=== PATIENT | male | born 2000 | race Caucasian/White ===

== ENCOUNTER 2022-04-21 22:05 | Emergency (ER) | payer OTHER, SELFPAY ==
--- NOTE | ~2022-04-21 | XR_ITS ---
EXAMINATION: XR CHEST CLINICAL INFORMATION: URI COMPARISON: None TECHNIQUE: Frontal view of the chest was obtained. FINDINGS: The lungs are clear with no focal consolidation. No evidence of pneumothorax, pulmonary edema, or pleural effusions. The cardiomediastinal silhouette is unremarkable. No acute osseous findings. XR/XR chest 1V IMPRESSION: No acute cardiopulmonary findings.
--- NOTE | ~2022-04-21 | CT_ITS ---
EXAMINATION: CT ABDOMEN AND PELVIS WITH CONTRAST CLINICAL INFORMATION: Right lower quadrant abdomen pain COMPARISON: None TECHNIQUE: Multidetector volumetric images were obtained from the superior aspect of the liver through the pubic symphysis following administration 85 mL of Omnipaque 350 intravenous contrast. Sagittal and coronal reformatted images were obtained on the technologist's workstation. Oral contrast: No This CT examination was performed using dose optimization techniques as appropriate, variously including the following: *Automated exposure control *Adjustment of mA and/or kV according to patient size (this includes techniques or standardized protocols for targeted exams where dose is matched to indication/reason for exam; i.e. extremities or head) *Use of iterative reconstruction technique DLP: 509 mGy-cm FINDINGS: LUNG BASES: The visualized lung bases are unremarkable. LIVER, GALLBLADDER, AND BILIARY TREE: The liver is normal in size, shape, and attenuation. No focal hepatic lesion or biliary ductal dilatation is present. The gallbladder is unremarkable with no evidence of radiopaque gallstones, gallbladder wall thickening, or obvious pericholecystic inflammatory changes. PANCREAS: Unremarkable. SPLEEN: Unremarkable. ADRENAL GLANDS: Unremarkable. KIDNEYS AND URETERS: The kidneys are normal in size, shape, and attenuation. No hydronephrosis, hydroureter, or calculi seen. No perinephric stranding. BLADDER: Unremarkable. GASTROINTESTINAL TRACT: No evidence of bowel obstruction. Assessment for wall thickening in some segments of the colon is limited due to luminal collapse, though no significant pericolonic stranding is seen to strongly suggest a colitis. The appendix is suspected to be collapsed common though inflammatory change in its expected location. No free fluid or free air is seen. ABDOMINAL WALL: No significant hernia is appreciated. LYMPH NODES: Normal. VASCULAR: Unremarkable. PELVIC VISCERA: There is a 9 mm cystic structure in the prostate along the midline which may represent a prostatic utricle cyst or Mullerian duct cyst. OSSEOUS STRUCTURES: Unremarkable. CT/CT abdomen pelvis w IV con IMPRESSION: 1. No acute findings identified in the abdomen/pelvis. 2. Cystic structure in the prostate along the midline which may represent a prostatic utricle cyst or Mullerian duct cyst.
[2022-04-21 22:11] VITALS: BP 142/72; PULSE 61; RESP 18; TEMP 36.8; O2SAT 100; BMI 25.1
[2022-04-21 22:25] LABS: MANUAL DIFF FLAG NO
[2022-04-21 22:30] LABS: Basophils Absolute Auto 0.1 X10*3/uL (0.0-0.2); Basophils Percent Auto 0.5 % (0-2); Eosinophils Absolute Auto 0.1 X10*3/uL (0.0-0.4); Eosinophils Percent Auto 0.4 % (0-4); Hematocrit 43.4 % (42.0-52.0); Hemoglobin 15.8 g/dl (14.0-18.0); Imm Gran Abs Auto 0.04 X10*3/uL (0.00-0.03); Imm Gran Pct Auto 0.3 % (0.0-0.4); Lymphocytes Absolute Auto 2.5 X10*3/uL (1.2-4.9); Lymphocytes Percent Auto 17.5 % (20-40); Mean Corpuscular HGB Conc 36.4 g/dl (31.0-36.0); Mean Corpuscular Hemoglobin 29.3 pg (27.0-33.0); Mean Corpuscular Volume 80.4 fL (80.0-98.0); Mean Platelet Volume 9.1 fL (9.4-12.4); Monocytes Percent Auto 6.8 % (2-11); Neutrophils Absolute Auto 10.4 x10*3/uL (2.0-8.3); Neutrophils Percent Auto 74.5 % (45-73); Platelet Count 415 X10*3/uL (160-400); Red Cell Distribution Width 11.3 % (11.0-16.0)
[2022-04-21 22:46] LABS: Alanine Aminotransferase 14 U/L (0-40); Alkaline Phosphatase 48 U/L (39-117); Anion Gap 18 (12-20); Aspartate Amino Transferase 18 U/L (5-37); Blood Urea Nitrogen 5 mg/dL (9-16); Calcium 10.2 mg/dL (8.4-10.2); Carbon Dioxide 21 mmol/L (22-29); Chloride 103 mmol/L (96-108); Creatinine Clr Calc Pharmacy 141.4; Estimated Glomerular Filt Rate > 60; Glucose Random 99 mg/dL (60-115); Lipase 76 U/L (8-78); Potassium 3.1 mmol/L (3.3-5.1); Sodium 139 mmol/L (135-145); Total Protein 7.9 g/dL (6.5-8.0)
[2022-04-21 23:04] LABS: Influenza A PCR NEGATIVE (Negative); Influenza B PCR NEGATIVE (Negative); Resp Syncy Virus RNA Qual PCR NEGATIVE (Negative); SARS COV2 PCR INHOUSE NEGATIVE (Negative)
--- NOTE | 2022-04-21 23:12 | ED_ITS ---
HPI - General Adult General Chief complaint: General Medical Stated complaint: Body aches Time Seen by Provider: 04/21/22 23:12 Source: patient and family Mode of arrival: ambulatory Limitations: no limitations History of Present Illness HPI narrative: 21-year-old male presents for body aches, headache sore throat and abdominal pain that started last week. He was diagnosed with strep and given amoxicillin. Patient stated that the abdominal pain has increased. He has been able to eat and drink without difficulty, denies chest pain or pressure, palpitations, shortness of breath, fevers, chills, abdominal distention, dysuria, hematuria, and weakness. Onset (ago): week(s) (1) Location: abdomen Radiation: non-radiation Severity: moderate Severity scale (1-10): 7 Quality: aching Pain Consistency: constant Relieving factors: none Exacerbating factors: movement and other (Palpation) Associated symptoms: malaise Treatments prior to arrival: other (Antibiotics) Related Data Allergies Allergy/AdvReac Type Severity Reaction Status Date / Time No Known Allergies Allergy Verified 04/21/22 22:15 Review of Systems Review of Systems: Constitutional: Positive fatigue, No Fever, No Chills ENT/Mouth: No Ear Pain, No Hoarseness, positive sore throat Eyes: No Eye Pain, No Swelling, No Redness, No Foreign Body Cardiovascular: No Chest Pain, No SOB Respiratory: No Cough, No Dyspnea Gastrointestinal: No Nausea, No Vomiting, No Diarrhea, positive abdominal Pain Genitourinary: No Dysuria, No Hematuria Musculoskeletal: No joint pain, No Myalgias, No Joint Swelling Skin: No Skin lacerations, No rash Neuro: No Weakness, No Numbness, No Paresthesias, No Loss of Consciousness, No Dizziness, positive Headache Psych: No Anxiety/Panic, No Depression Heme/Lymph: no easy bruising, no Lymphadenopathy Endocrine: No Polyuria, No Polydipsia Yes all other systems are reviewed and are negative [facility] Past Medical History Attestation statement: The following information was validated with the patient. Source: old records reviewed Social History Social History Advance Directives: No Advance Directives Information Provided: Yes Physical Exam ED Vital Signs: Vital Signs - 24 hr 04/21/22 22:11 04/22/22 00:34 Temperature 98.3 F 98.4 F Pulse Rate 61 66 Respiratory Rate 18 17 Blood Pressure 142/72 H 132/79 Pulse Oximetry 100 100 Oxygen Delivery Method Room Air Room Air BMI result Body Mass Index 25.1 Appearance: Alert. Oriented X3. No acute distress. Eyes: Pupils equal, round and reactive to light. Sclera nonicteric. ENT: Pharynx normal. Neck: Normal inspection. Neck supple. CVS: Normal heart rate and rhythm. Pulses normal. Respiratory: No respiratory distress. Breath sounds normal. Abdomen: Soft and diffusely tender greater on the right lower quadrant. No distention or rigidity. No hepatosplenomegaly. Skin: Skin warm and dry. Normal skin color. Normal skin turgor. Extremities: No lower extremity edema. Gait well-balanced well coordinated. Neuro: No motor deficit. No sensory deficit. Cranial nerves 2-12 intact. Course Course Course Narrative: 21-year-old male presents for flu-like symptoms with abdominal pain. Was treated with amoxicillin for strep, last dose is due tomorrow. He has been taking his medications as directed. He reports that his abdominal pain has increased since he started taking this medication. He is able to eat and drink without difficulty, denies hematochezia, melena, abdominal distention, and inability to pass flatus. He has had no prior abdominal surgeries, physical exam indicates tenderness greater to the right lower quadrant without rebound or rigidity. Will order CT scan abdomen pelvis. 2300 p.m. patient's white count is 14, which is most likely due to his upper respiratory infection, no hepatosplenomegaly or tenderness to the left upper quadrant, no atypical lymphocytes or monocytes low likelihood of mononucleosis. Order for mono spot at this time. 00:50 CT scan abdomen pelvis negative for acute findings. Incidental finding of a cystic structure in the prostate along the midline which may represent a prostate utricle cyst or mullerian duct cyst. 01:40 Monospot negative. Plan of care to discharge home. Patient and patient's mother verbalized understanding of and agrees to plan of care discharge home. Verbalized understanding of signs and symptoms indicating need for emergent intervention. Parent also verbalized understanding that this could be an early appendicitis that if symptoms worsen that they should return for evaluation. They do understand that if they must follow up with Urology. Medications Administered Discontinued Medications Generic Name Dose Route Start Last Admin Trade Name Freq PRN Reason Stop Dose Admin Diphenhydramine HCl 25 mg 04/22/22 00:33 04/22/22 00:40 Diphenhydramine Hcl 25 Mg Capsule PO 04/22/22 00:34 25 mg ONCE ONE Administration Sodium Chloride 1,000 mls @ 999 mls/hr 04/21/22 23:15 04/22/22 00:45 Ns IVCONT 04/22/22 00:15 Infused .Q1H1M HOSSEIN Infusion Iohexol 100 ml 04/22/22 00:15 04/22/22 00:15 Iohexol 350 Mg/Ml 100 Ml Infus..Btl IV 04/22/22 00:16 85 ml ONCE ONE Administration Potassium Chloride 40 meq 04/21/22 23:12 04/21/22 23:30 Potassium Chloride Packet 20 Meq Packet PO 04/21/22 23:13 40 meq ONCE ONE Administration Medical Decision Making Differential Diagnosis Differential Diagnosis: Appendicitis, colitis, gastroenteritis, mononucleosis, influenza, COVID Medical Records Medical records reviewed: Yes I reviewed the patient's medical records. Lab Data Lab results reviewed: Yes I reviewed the patient's lab results. Result diagrams: 04/21/22 22:21 04/21/22 22:21 Labs: Lab Results 04/21/22 04/21/22 04/21/22 Range/Units 22:21 22:21 22:21 WBC 14.0 H (4.8-10.8) X10*3/uL RBC 5.40 (4.60-5.80) X10*6/uL Hgb 15.8 (14.0-18.0) g/dl Hct 43.4 (42.0-52.0) % MCV 80.4 (80.0-98.0) fL MCH 29.3 (27.0-33.0) pg MCHC 36.4 H (31.0-36.0) g/dl RDW 11.3 (11.0-16.0) % Plt Count 415 H (160-400) X10*3/uL MPV 9.1 L (9.4-12.4) fL Immature Gran % (Auto) 0.3 (0.0-0.4) % Neut % (Auto) 74.5 H (45-73) % Lymph % (Auto) 17.5 L (20-40) % [place] % (Auto) 6.8 (2-11) % Eos % (Auto) 0.4 (0-4) % Baso % (Auto) 0.5 (0-2) % Lymph # (Auto) 2.5 (1.2-4.9) X10*3/uL [place] # (Auto) 1.0 (0.1-1.2) X10*3/uL Eos # (Auto) 0.1 (0.0-0.4) X10*3/uL Baso # (Auto) 0.1 (0.0-0.2) X10*3/uL Abs Immat Gran (auto) 0.04 H (0.00-0.03) X10*3/uL Absolute Neuts (auto) 10.4 H (2.0-8.3) x10*3/uL Absolute Nucleated RBC 0.000 (0.0-0.012) X10*3/uL Nucleated RBC % (auto) 0.0 (0.0-0.2) /100WBC Sodium 139 (135-145) mmol/L Potassium 3.1 L (3.3-5.1) mmol/L Chloride 103 (96-108) mmol/L Carbon Dioxide 21 L (22-29) mmol/L Anion Gap 18 (12-20) BUN 5 L (9-16) mg/dL Creatinine 0.84 (0.5-1.4) mg/dL Estim Creat Clear Calc 141.4 Estimated GFR > 60 Random Glucose 99 (60-115) mg/dL Lactic Acid (0.5-2.0) mmol/L Calcium 10.2 (8.4-10.2) mg/dL Total Bilirubin 1.5 H (0.0-1.0) mg/dL AST 18 (5-37) U/L ALT 14 (0-40) U/L Alkaline Phosphatase 48 (39-117) U/L Total Protein 7.9 (6.5-8.0) g/dL Albumin 5.0 (3.5-5.0) g/dL Lipase 76 (8-78) U/L Monoscreen (Negative) Influenza Type A (PCR) NEGATIVE (Negative) Influenza Type B (PCR) NEGATIVE (Negative) RSV RNA Qual (PCR) NEGATIVE (Negative) SARS-CoV-2 RNA (RT-PCR) NEGATIVE (Negative) 04/21/22 04/21/22 Range/Units 22:21 23:25 WBC (4.8-10.8) X10*3/uL RBC (4.60-5.80) X10*6/uL Hgb (14.0-18.0) g/dl Hct (42.0-52.0) % MCV (80.0-98.0) fL MCH (27.0-33.0) pg MCHC (31.0-36.0) g/dl RDW (11.0-16.0) % Plt Count (160-400) X10*3/uL MPV (9.4-12.4) fL Immature Gran % (Auto) (0.0-0.4) % Neut % (Auto) (45-73) % Lymph % (Auto) (20-40) % [place] % (Auto) (2-11) % Eos % (Auto) (0-4) % Baso % (Auto) (0-2) % Lymph # (Auto) (1.2-4.9) X10*3/uL [place] # (Auto) (0.1-1.2) X10*3/uL Eos # (Auto) (0.0-0.4) X10*3/uL Baso # (Auto) (0.0-0.2) X10*3/uL Abs Immat Gran (auto) (0.00-0.03) X10*3/uL Absolute Neuts (auto) (2.0-8.3) x10*3/uL Absolute Nucleated RBC (0.0-0.012) X10*3/uL Nucleated RBC % (auto) (0.0-0.2) /100WBC Sodium (135-145) mmol/L Potassium (3.3-5.1) mmol/L Chloride (96-108) mmol/L Carbon Dioxide (22-29) mmol/L Anion Gap (12-20) BUN (9-16) mg/dL Creatinine (0.5-1.4) mg/dL Estim Creat Clear Calc Estimated GFR Random Glucose (60-115) mg/dL Lactic Acid 1.4 (0.5-2.0) mmol/L Calcium (8.4-10.2) mg/dL Total Bilirubin (0.0-1.0) mg/dL AST (5-37) U/L ALT (0-40) U/L Alkaline Phosphatase (39-117) U/L Total Protein (6.5-8.0) g/dL Albumin (3.5-5.0) g/dL Lipase (8-78) U/L Monoscreen Negative (Negative) Influenza Type A (PCR) (Negative) Influenza Type B (PCR) (Negative) RSV RNA Qual (PCR) (Negative) SARS-CoV-2 RNA (RT-PCR) (Negative) Imaging Data CT scan - abdomen: Attestation: I personally reviewed and interpreted this imaging study as follows: Radiologist's impression: FINDINGS: LUNG BASES: The visualized lung bases are unremarkable.? LIVER, GALLBLADDER, AND BILIARY TREE: The liver is normal in size, shape, and attenuation. No focal hepatic lesion or biliary ductal dilatation is present. The gallbladder is unremarkable with no evidence of radiopaque gallstones, gallbladder wall thickening, or obvious pericholecystic inflammatory changes.? PANCREAS: Unremarkable.? SPLEEN: Unremarkable.? ADRENAL GLANDS: Unremarkable.? KIDNEYS AND URETERS: The kidneys are normal in size, shape, and attenuation. No hydronephrosis, hydroureter, or calculi seen. No perinephric stranding. ? BLADDER: Unremarkable.? GASTROINTESTINAL TRACT: No evidence of bowel obstruction. Assessment for wall thickening in some segments of the colon is limited due to luminal collapse, though no significant pericolonic stranding is seen to strongly suggest a colitis. The appendix is suspected to be collapsed common though inflammatory change in its expected location. No free fluid or free air is seen.? ABDOMINAL WALL: No significant hernia is appreciated.? LYMPH NODES: Normal. VASCULAR: Unremarkable. PELVIC VISCERA: There is a 9 mm cystic structure in the prostate along the midline which may represent a prostatic utricle cyst or Mullerian duct cyst.? OSSEOUS STRUCTURES: Unremarkable.? CT/CT abdomen pelvis w IV con IMPRESSION: 1.? No acute findings identified in the abdomen/pelvis. 2.? Cystic structure in the prostate along the midline which may represent a prostatic utricle cyst or Mullerian duct cyst. ? Discharge Plan Discharge Clinical Impression: Cyst of prostate, Abdominal pain Patient Disposition: Home, Self-Care Instructions: Abdominal Pain (ED) Additional Instructions: You were evaluated for abdominal pain. CT scan is negative for acute findings. Incidental finding is a cyst on the prostate. You must follow-up with Urology for further investigation. I have referred you to Dr. Joshi. Please call and request an appointment for evaluation. Tested negative for COVID, influenza and RSV. Continue to take the antibiotics that were prescribed for your strep a pharyngitis. If abdominal pain worsens over the next few days please return to the emergency department for evaluation as this could be an early appendicitis. Thank you for choosing this emergency department for evaluation. Please follow-up with primary care physician as needed. Return to the emergency department for any new, concerning, or worsening symptoms. Referrals: Brian Joshi MD [Physician] - 2 weeks (Prostate cyst)
[2022-04-21] MEDS: 0.9 % Sodium Chloride 1,000 ML 999 ML IVCONT (23:26)
[2022-04-21] MEDS: Potassium Chloride Packet 20 MEQ PACKET 40 MEQ PO (23:30)
[2022-04-21 23:49] LABS: Lactic Acid 1.4 mmol/L (0.5-2.0)
[2022-04-21 23:53] LABS: Bilirubin Total 1.5 mg/dL (0.0-1.0)
[2022-04-22] MEDS: iohexoL 350 MG/ML 100 ML INFUS..BTL IV (00:15)
--- OUTSIDE RECORDS SUMMARY | 2022-04-22 00:27 | XMS_ITS | Continuity of Care Document ---
:2000 Author Organization [facility] Address [address] [place] [address]- Care Team Providers Name Role Phone Not on Staff, PCP Primary Care Physician Unavailable Encounter PSS Date(s): 05/16/21 - 05/23/21 [facility] [address] [place] [address]- Attending Physician: Not on Staff, Attending MD Allergies, Adverse Reactions, Alerts Substance Reaction Severity Status NKA Active Immunizations Given and Recorded Vaccine Date Status Refusal Reason influenza virus vaccine, inactivated 02/17/21 Given influenza virus vaccine, inactivated 02/09/20 Given influenza virus vaccine, inactivated 01/30/19 Given influenza virus vaccine, inactivated1 01/29/18 Given influenza virus vaccine, inactivated2 01/22/17 Given influenza virus vaccine, inactivated3 01/15/17 Given influenza virus vaccine, inactivated4 03/10/16 Given influenza virus vaccine, inactivated5 01/30/12 Given influenza virus vaccine, inactivated6 01/17/11 Given influenza virus vaccine, inactivated 03/19/05 Given influenza virus vaccine, inactivated 07/17/04 Given influenza virus vaccine, inactivated 02/29/04 Given SARS-CoV-2 (COVID-19) mRNA BNT-162b2 vac 09/16/20 Recorde d SARS-CoV-2 (COVID-19) mRNA BNT-162b2 vac 09/16/20 Recorde d SARS-CoV-2 (COVID-19) mRNA BNT-162b2 vac 08/28/20 Recorde d SARS-CoV-2 (COVID-19) mRNA BNT-162b2 vac 08/28/20 Recorde d meningococcal group B vaccine 03/03/19 Given meningococcal group B vaccine 01/30/19 Given Meningococcal Conjugate Vaccine 01/30/19 Given Meningococcal Conjugate Vaccine7 02/11/14 Given influenza virus vaccine, live 02/15/15 Given Human Papillomavirus Vaccine 08/16/14 Given Human Papillomavirus Vaccine 04/13/14 Given Human Papillomavirus Vaccine8 02/11/14 Given FluMist (oldterm)9 02/11/14 Given FluMist (oldterm) 02/05/13 Given tetanus/diphtheria/pertussis, acel(Tdap)10 02/11/14 Given Hepatitis A Pediatric Vaccine 01/17/11 Given Hepatitis A Pediatric Vaccine 01/13/10 Given Influenza Inactive (IM) (oldterm) 01/13/10 Given Influenza Inactive (IM) (oldterm)11 03/24/08 Given Influenza Inactive (IM) (oldterm) 04/23/06 Given influ virus vac, H1N1, inactive(oldterm)12 06/02/09 Given influ virus vac, H1N1, inactive(oldterm)13 04/22/09 Given Influenza Vaccine (oldterm) 01/27/09 Given Poliovirus Vaccine, Bimgtfzlwwg07 01/12/08 Given Poliovirus Vaccine, Inactivated 07/17/04 Given Poliovirus Vaccine, Inactivated 04/26/03 Given Poliovirus Vaccine, Inactivated 03/15/03 Given Diphth/Pertussis,Acel/Tetanus (oldterm)15 01/12/08 Given Diphth/Pertussis,Acel/Tetanus (oldterm) 07/17/04 Given Diphth/Pertussis,Acel/Tetanus (oldterm) 06/28/03 Given Diphth/Pertussis,Acel/Tetanus (oldterm) 04/26/03 Given Diphth/Pertussis,Acel/Tetanus (oldterm) 03/15/03 Given Influenza Virus Vaccine (oldterm)16 02/26/07 Given Measles/Mumps/Rubella/UwwerdeqbEkzvxYif35 01/13/07 Given Haemophilus B Conj Vaccine (oldterm) 03/27/04 Given Haemophilus B Conj Vaccine (oldterm) 06/28/03 Given Haemophilus B Conj Vaccine (oldterm) 04/26/03 Given Haemophilus B Conj Vaccine (oldterm) 03/15/03 Given Prevnar Inj (oldterm) 03/27/04 Given Prevnar Inj (oldterm) 06/28/03 Given Prevnar Inj (oldterm) 04/26/03 Given Prevnar Inj (oldterm) 03/15/03 Given Measles/Mumps/Rubella Virus Vaccine 11/8/04 Given Varicella Virus Vaccine 12/27/03 Given Hepatitis B Vaccine (old term) 09/27/03 Given Hepatitis B Vaccine (old term) 01/25/03 Given Hepatitis B Vaccine (old term)18 02 Given 1Result Comment: [01/29/2018] Dr. DurandNsxevsjeg6Ozcvie Comment: [01/22/2017] Brooklyn GonzalezNmpthkh8Ffqvea Comment: [01/15/2017] Dr. Durand[01/15/2017 Uncharted] changed [id number] Comment: [03/10/2016] Jian Durand [id number] Note: vis jjmhi5Imvif Note: VIS 06/21 06 [id number] Comment: [02/11/2014] Dr KaurOtbnjdmht1Kvuckl Comment: [02/11/2014] Dr KaurNytsltndk0Ujflou Comment: [02/11/2014] Dr KaurWrqhpataz62Dzqhds Comment: [02/11/2014] Dr KaurQmmejxlkf77Nncsl Note: VIS 02/20/07 [id number] Note: screening question xczmzhtu55Dficw Note: screening question igqzvibd26Zbedb Note: VIS 05/20/99 [id number] Note: VIS 10/03/06 [id number] Note: Admin Note: [id number] [facility]: [facility] Problem List Condition Effective Dates Status Health Status Informant Overweight(Confirmed) 02/11/14 Active
--- OUTSIDE RECORDS SUMMARY | 2022-04-22 00:27 | XMS_ITS | Continuity of Care Document ---
:2000 Author Organization [facility] Address [address] [place] [address]- Care Team Providers Name Role Phone Not on Staff, PCP Primary Care Physician Unavailable Encounter PSS Date(s): 03/19/22 - 03/26/22 [facility] [address] [place] [address]- Attending Physician: James Durand NP Allergies, Adverse Reactions, Alerts No Known Allergies Immunizations Given and Recorded Vaccine Date Status [...] Influenza Vaccine (oldterm) 01/27/09 Given Poliovirus Vaccine, [id number] 01/12/08 Given Poliovirus Vaccine, Inactivated 07/17/04 Given Poliovirus Vaccine, Inactivated 04/26/03 Given Poliovirus Vaccine, Inactivated 03/15/03 Given Diphth/Pertussis,Acel/Tetanus (oldterm)15 01/12/08 Given Diphth/Pertussis,Acel/Tetanus (oldterm) 07/17/04 Given Diphth/Pertussis,Acel/Tetanus (oldterm) 06/28/03 Given Diphth/Pertussis,Acel/Tetanus (oldterm) 04/26/03 Given Diphth/Pertussis,Acel/Tetanus (oldterm) 03/15/03 Given Influenza Virus Vaccine (oldterm)16 02/26/07 Given Measles/Mumps/Rubella/FqtjqsztaAsmjmEdl02 01/13/07 Given Haemophilus B Conj Vaccine (oldterm) 03/27/04 Given Haemophilus B Conj Vaccine (oldterm) 06/28/03 Given Haemophilus B Conj Vaccine (oldterm) 04/26/03 Given Haemophilus B Conj Vaccine (oldterm) 03/15/03 Given Prevnar Inj (oldterm) 03/27/04 Given Prevnar Inj (oldterm) 06/28/03 Given Prevnar Inj (oldterm) 04/26/03 Given Prevnar Inj (oldterm) 03/15/03 Given Measles/Mumps/Rubella Virus Vaccine 03/27/04 Given Varicella Virus Vaccine 12/27/03 Given Hepatitis B Vaccine (old term) 09/27/03 Given Hepatitis B Vaccine (old term) 01/25/03 Given Hepatitis B Vaccine (old term)18 02 Given 1Result Comment: [01/29/2018] Dr. DurandXudrcrxbf6Ntjnpc Comment: [01/22/2017] Brooklyn GonzalezGckavua6Ahzqfj Comment: [01/15/2017] Dr. Durand[01/15/2017 Uncharted] changed gvzm7Kykoho Comment: [03/10/2016] Jian Durand [id number] Note: vis bhrnl6Ydqag Note: VIS 06/21 06 [id number] Comment: [02/11/2014] Dr KaurFsqhckgqz4Poikgx Comment: [02/11/2014] Dr KaurLkxjnqisp5Gefydf Comment: [02/11/2014] Dr KaurWvumkaeda14Nxpbcn Comment: [02/11/2014] Dr KaurKazwuidnz43Tgejx Note: VIS 02/20/07 [id number] Note: screening question mapnnhfa70Aozzv Note: screening question dboblemx72Mofkl Note: VIS 05/20/99 [id number] Note: VIS 10/03/06 [id number] Note: gvqmnid27 Admin Note: aiwvtum39Sjvbj Note: [facility] Problem List Condition Confirmation Course Effective Dates Status Health Stat us Informant Overweight Confirmed 02/11/14 Active Vital Signs Most recent to oldest [Reference Range]: 1 Height 175 cm (03/19/22 1:08 PM) Weight 78.7 kg (03/19/22 1:08 PM) Pulse Rate [55-90 bpm] 68 bpm (03/19/22 1:08 PM) Body Mass Index [18.5-24.99 kg/m2] 25.7 kg/m2 *H* (03/19/22 1:08 PM) Blood Pressure [90-138/55-84 mm Hg] 134/74 mm Hg (03/19/22 1:08 PM) Blood pressure sites Arm, left (03/19/22 1:08 PM) Dry Weight 78.7 kg (03/19/22 1:08 PM) Weight Obtained Via Standing scale (03/19/22 1:08 PM) Dry Weight Obtained Via Standing scale (03/19/22 1:08 PM) BMI Percentile 80.61 1 (03/19/22 1:08 PM) 1Result Comment: ^~:!Percentile Source -CDC/WHO Patient Care team information Care Team PersonnelName: Morenita Peralta NP Position: [facility] PCO Associate Professional Member Role: Lifetime Consulting Provider Address: Address: [address] [place] [address] [place] [address]- Name: Natasha PARTIDA, Calvin Amaya Position: [facility] General Pediatrics MD Member Role: Lifetime Consulting Physician Address: Address: [address] [place] [address] [address] Name: Ladarius SCHAFFER, James Villar Position: [facility] PCO Associate Professional Member Role: Lifetime Consulting Provider Address: Address: [address] [place] [address] Name: Not on Staff, PCP Position: [facility] Physician (General Medicine) Member Role: PCP Care Team Related PersonsName: JESSY STEVE Address: home [address] Address: [facility]
--- OUTSIDE RECORDS SUMMARY | 2022-04-22 00:27 | XMS_ITS | Continuity of Care Document ---
:2002 Author Organization [facility] Address [address] [place] [address]- Care Team Providers Name Role Phone Not on Staff, PCP Primary Care Physician Unavailable Encounter PSS Date(s): 11/17/20 - 11/24/20 [facility] [address] [place] [address]- Attending Physician: Not on Staff, Attending MD Allergies, Adverse Reactions, Alerts Substance Reaction Severity Status NKA Active Immunizations Given and Recorded Vaccine Date Status Refusal Reason SARS-CoV-2 (COVID-19) mRNA BNT-162b2 vac 09/16/20 Recorde d SARS-CoV-2 (COVID-19) mRNA BNT-162b2 vac 09/16/20 Recorde d SARS-CoV-2 (COVID-19) mRNA BNT-162b2 vac 08/28/20 Recorde d SARS-CoV-2 (COVID-19) mRNA BNT-162b2 vac 08/28/20 Recorde d influenza virus vaccine, inactivated 02/09/20 Given influenza [...] Given influenza virus vaccine, inactivated 02/29/04 Given meningococcal group B vaccine 03/03/19 Given meningococcal group B vaccine 01/30/19 Given Meningococcal Conjugate Vaccine 01/30/19 Given Meningococcal Conjugate Vaccine7 02/11/14 Given influenza virus vaccine, live 02/15/15 Given Human Papillomavirus Vaccine 3/30/15 Given Human Papillomavirus Vaccine 04/13/14 Given Human [...] Influenza Vaccine (oldterm) 01/27/09 Given Poliovirus Vaccine, Rhtlfsxqlar73 01/12/08 Given Poliovirus Vaccine, Inactivated 07/17/04 Given Poliovirus Vaccine, Inactivated 04/26/03 Given Poliovirus Vaccine, Inactivated 03/15/03 Given Diphth/Pertussis,Acel/Tetanus (oldterm)15 01/12/08 Given Diphth/Pertussis,Acel/Tetanus (oldterm) 07/17/04 Given Diphth/Pertussis,Acel/Tetanus (oldterm) 06/28/03 Given Diphth/Pertussis,Acel/Tetanus (oldterm) 04/26/03 Given Diphth/Pertussis,Acel/Tetanus (oldterm) 03/15/03 Given Influenza Virus Vaccine (oldterm)16 02/26/07 Given Measles/Mumps/Rubella/WvdruxfqiVdsigHps80 01/13/07 Given Haemophilus B Conj Vaccine (oldterm) [...] term)18 02 Given 1Result Comment: [01/29/2018] Dr. DurandVxjxbgiio6Cvdhlc Comment: [01/22/2017] Brooklyn GonzalezAcyivxx7Mpupui Comment: [01/15/2017] Dr. Durand[01/15/2017 Uncharted] changed jnvq9Vecoqf Comment: [03/10/2016] Jian Durand PRT5Opdhs Note: vis qymjz2Oqkuf Note: VIS 06/21 06 PYFZL7Gdlwna Comment: [02/11/2014] Dr KaurCnwtqnftw2Qshslg Comment: [02/11/2014] Dr KaurKpplajovi5Xqdaet Comment: [02/11/2014] Dr KaurKnlxgscan38Pmhprh Comment: [02/11/2014] Dr KaurEyowgpntu99Bqihn Note: VIS 02/20/07 NYQQC68Lohst Note: screening question evbsizhf36Xmvzs Note: screening question uwxiejne22Fhmiv Note: VIS 05/20/99 ZPXOW31Sfpez Note: VIS 10/03/06 UJHTQ18Cppsd Note: rxggzyb74 Admin Note: bjbmebt51Wkxqq Note: [facility] Problem List Condition Effective Dates Status Health Status Informant Overweight(Confirmed) 02/11/14 Active
--- OUTSIDE RECORDS SUMMARY | 2022-04-22 00:27 | XMS_ITS | Continuity of Care Document ---
:2002 Author Organization [facility] Address [address] [place] [address]- Care Team Providers Name Role Phone Not on Staff, PCP Primary Care Physician Unavailable Encounter PSS Date(s): 02/23/22 - 03/25/22 [facility] [place] [address], [place] [address] Attending Physician: Calvin Kaur MD Allergies, Adverse Reactions, Alerts No Known Allergies [...] Influenza Vaccine (oldterm) 01/27/09 Given Poliovirus Vaccine, Aebpxjktazn97 01/12/08 Given Poliovirus Vaccine, Inactivated 07/17/04 Given Poliovirus Vaccine, Inactivated 04/26/03 Given Poliovirus Vaccine, Inactivated 03/15/03 Given Diphth/Pertussis,Acel/Tetanus (oldterm)15 01/12/08 Given Diphth/Pertussis,Acel/Tetanus (oldterm) 07/17/04 Given Diphth/Pertussis,Acel/Tetanus (oldterm) 06/28/03 Given Diphth/Pertussis,Acel/Tetanus (oldterm) 04/26/03 Given Diphth/Pertussis,Acel/Tetanus (oldterm) 03/15/03 Given Influenza Virus Vaccine (oldterm)16 02/26/07 Given Measles/Mumps/Rubella/YthwwfjzeOhfkqJha82 01/13/07 Given Haemophilus B Conj Vaccine (oldterm) [...] term)18 02 Given 1Result Comment: [01/29/2018] Dr. DurandHeqvusgux8Cfvkcw Comment: [01/22/2017] Brooklyn GonzalezXkyfjlq2Imvxon Comment: [01/15/2017] Dr. Durand[01/15/2017 Uncharted] changed xubn6Uiyyif Comment: [03/10/2016] Jian Durand BUD4Iynlh Note: vis ddist7Tsgzg Note: VIS 06/21 06 WTMKD7Mrjgqx Comment: [02/11/2014] Dr KaurJdpqzhjdg6Sxrxwx Comment: [02/11/2014] Dr KaurDdtlfpvvb5Spjvth Comment: [02/11/2014] Dr KaurDxofmxivo05Scxoul Comment: [02/11/2014] Dr KaurSwhkhrmhp34Eetad Note: VIS 02/20/07 UAAMZ28Egshx Note: screening question gucxxzjx61Hyhia Note: screening question iytqevgt00Kclnf Note: VIS 05/20/99 LNTVR03Nzvla Note: VIS 10/03/06 JFXPP73Hlevz Note: dyzxhzz52 Admin Note: mfpzpuw60Qsghb Note: [facility] Problem List Condition Confirmation Course Effective Dates Status Health Stat Informant Overweight Confirmed 02/11/14 Active Patient Care team information PersonnelName: Not on Staff, PCP
--- OUTSIDE RECORDS SUMMARY | 2022-04-22 00:27 | XMS_ITS | Continuity of Care Document ---
:2002 Author Organization [facility] [address] [place] [address]- Care Team Providers Name Role Phone Not on Staff, PCP Primary Care Physician Unavailable Encounter PSS Date(s): 04/13/22 - 04/20/22 [facility] [address] [address]- Attending Physician: Not on Staff, Attending MD Allergies, Adverse Reactions, Alerts No Known [...] Influenza Vaccine (oldterm) 01/27/09 Given Poliovirus Vaccine, Xovyevgwkni25 01/12/08 Given Poliovirus Vaccine, Inactivated 07/17/04 Given Poliovirus Vaccine, Inactivated 04/26/03 Given Poliovirus Vaccine, Inactivated 03/15/03 Given Diphth/Pertussis,Acel/Tetanus (oldterm)15 01/12/08 Given Diphth/Pertussis,Acel/Tetanus (oldterm) 07/17/04 Given Diphth/Pertussis,Acel/Tetanus (oldterm) 06/28/03 Given Diphth/Pertussis,Acel/Tetanus (oldterm) 04/26/03 Given Diphth/Pertussis,Acel/Tetanus (oldterm) 03/15/03 Given Influenza Virus Vaccine (oldterm)16 02/26/07 Given Measles/Mumps/Rubella/YckosqxhdIpegiKay71 01/13/07 Given Haemophilus B Conj Vaccine (oldterm) [...] term)18 02 Given 1Result Comment: [01/29/2018] Dr. DurandUmzploqto2Mlwczy Comment: [01/22/2017] Brooklyn GonzalezUdvntsp9Ihvkpu Comment: [01/15/2017] Dr. Durand[01/15/2017 Uncharted] changed klde4Hsnzhe Comment: [03/10/2016] Jian Durand VSS0Dxuwe Note: vis fbkvl3Tyyyb Note: VIS 06/21 06 XBWTX2Pzmyih Comment: [02/11/2014] Dr KaurHztgifmln2Acktow Comment: [02/11/2014] Dr KaurIseixmulq7Dolrml Comment: [02/11/2014] Dr KaurYtxjdcnwi23Zrdrgk Comment: [02/11/2014] Dr KaurIlvykzfzr55Opxhr Note: VIS 02/20/07 XXLNR71Rqtzd Note: screening question zrhmqwkj02Myyqj Note: screening question cmtorigr67Cmnah Note: VIS 05/20/99 PBRUO19Fhtxm Note: VIS 10/03/06 QTCCV86Mytcp Note: emsdapi12 Admin Note: rnpkgxb56Fplrh Note: [facility] Medications penicillin V potassium 500 mg oral tablet 1 tablet = 500 mg, By Mouth, Every 8 hours, for 10 days, # 30 tablet, 0 Refills, Acute 04/23/22 11:08:00 EST, 04/13/22 11:08:00 EST, Tablet, [facility]/pharmacy #[id number], Partial fill upon patient request if theprescription is for a schedule II opioid drug., 1... Start Date: 04/13/22 Stop Date: 04/23/22 Status: Ordered Problem List Condition Confirmation Course Effective Dates Status Health Stat us Informant Overweight Confirmed 02/11/14 Active Patient Care team information Care Team PersonnelName: Morenita Peralta NP Position: [facility] PCO Associate Professional Member Role: Lifetime Consulting Provider Address: Address: [address] [place] [address]- Name: Natasha PARTIDA, Calvin Amaya Position: [facility] General Pediatrics MD Member Role: Lifetime Consulting Physician Address: Address: [address] [place], [place] [address], [place] - Name: Ladarius SCHAFFER, James Villar Position: [facility] PCO Associate Professional Member Role: Lifetime Consulting Provider Address: Address: [address] [place] [address] [facility] [place], [place] - Name: Not on Staff, PCP Position: [facility] Physician (General Medicine) Member Role: PCP Care Team Related PersonsName: JESSY STEVE Address: home [address], [place] Address: temporary 0
--- OUTSIDE RECORDS SUMMARY | 2022-04-22 00:27 | XMS_ITS | Continuity of Care Document ---
:2002 Author Organization [facility] Address [address] [place] [address]- Care Team Providers Name Role Phone Not on Staff, PCP Primary Care Physician Unavailable Encounter PSS Date(s): 05/31/21 - 06/07/21 [facility] [address] [place] [address]- Attending Physician: Not on Staff, Attending MD [...] Influenza Vaccine (oldterm) 01/27/09 Given Poliovirus Vaccine, Tythryijxzv58 01/12/08 Given Poliovirus Vaccine, Inactivated 07/17/04 Given Poliovirus Vaccine, Inactivated 04/26/03 Given Poliovirus Vaccine, Inactivated 03/15/03 Given Diphth/Pertussis,Acel/Tetanus (oldterm)15 01/12/08 Given Diphth/Pertussis,Acel/Tetanus (oldterm) 07/17/04 Given Diphth/Pertussis,Acel/Tetanus (oldterm) 06/28/03 Given Diphth/Pertussis,Acel/Tetanus (oldterm) 04/26/03 Given Diphth/Pertussis,Acel/Tetanus (oldterm) 03/15/03 Given Influenza Virus Vaccine (oldterm)16 02/26/07 Given Measles/Mumps/Rubella/FzjhhysbvCpohjFgx11 01/13/07 Given Haemophilus B Conj Vaccine (oldterm) [...] term)18 02 Given 1Result Comment: [01/29/2018] Dr. DurandTnrdebxzf6Vjjjzl Comment: [01/22/2017] Brooklyn GonzalezPjuvupj0Srffve Comment: [01/15/2017] Dr. Durand[01/15/2017 Uncharted] changed uwbe4Ztknbc Comment: [03/10/2016] Jian Durand PEF8Luxgp Note: vis siqoz0Uacvy Note: VIS 06/21 06 NHLZG5Mikboq Comment: [02/11/2014] Dr KaurIokepnpeb7Rosizp Comment: [02/11/2014] Dr KaurOfgsuircs4Vhsmze Comment: [02/11/2014] Dr KaurBjuscojzh40Kyiifa Comment: [02/11/2014] Dr KaurGhizppnrb08Ybwjw Note: VIS 02/20/07 SMNIM97Mlhjg Note: screening question ykwdtfbm18Laakf Note: screening question vlklirnk82Puxqz Note: VIS 05/20/99 LUCKJ10Kcngc Note: VIS 10/03/06 RJNSK29Qrefd Note: qjdovqe50 Admin Note: awzuecj27Wmefs Note: [facility] Problem List Condition Effective Dates Status Health Status Informant Overweight(Confirmed) 02/11/14 Active
--- OUTSIDE RECORDS SUMMARY | 2022-04-22 00:27 | XMS_ITS | Continuity of Care Document ---
:2002 Author Organization [facility] Address [address] [place] [address]- Care Team Providers Name Role Phone Not on Staff, PCP Primary Care Physician Unavailable Encounter PSS Date(s): 08/29/21 - 09/05/21 [facility] [address] [place] [address]- Attending Physician: Not on Staff, Attending MD [...] Influenza Vaccine (oldterm) 01/27/09 Given Poliovirus Vaccine, Ekgieqmqfyp39 01/12/08 Given Poliovirus Vaccine, Inactivated 07/17/04 Given Poliovirus Vaccine, Inactivated 04/26/03 Given Poliovirus Vaccine, Inactivated 03/15/03 Given Diphth/Pertussis,Acel/Tetanus (oldterm)15 01/12/08 Given Diphth/Pertussis,Acel/Tetanus (oldterm) 07/17/04 Given Diphth/Pertussis,Acel/Tetanus (oldterm) 06/28/03 Given Diphth/Pertussis,Acel/Tetanus (oldterm) 04/26/03 Given Diphth/Pertussis,Acel/Tetanus (oldterm) 03/15/03 Given Influenza Virus Vaccine (oldterm)16 02/26/07 Given Measles/Mumps/Rubella/XiduqykuzYfivmJih53 01/13/07 Given Haemophilus B Conj Vaccine (oldterm) [...] term)18 02 Given 1Result Comment: [01/29/2018] Dr. DurandKutuvmtxn8Aljzhu Comment: [01/22/2017] Brooklyn GonzalezAymbguz5Ncmgbw Comment: [01/15/2017] Dr. Durand[01/15/2017 Uncharted] changed bsiy1Utmpaq Comment: [03/10/2016] Jian Durand AJR5Sskhk Note: vis uoepr6Muyny Note: VIS 06/21 06 NGIEU9Juvpsp Comment: [02/11/2014] Dr KaurOlnpstvxi1Vcyuhl Comment: [02/11/2014] Dr KaurAqevdypre9Expwpc Comment: [02/11/2014] Dr KaurBkxhjykwv65Sxvvnr Comment: [02/11/2014] Dr KaurUadlmuqfh34Swbni Note: VIS 02/20/07 JLJGD52Uprar Note: screening question symvyjdz58Ouuwm Note: screening question hgapjslk93Kmjfw Note: VIS 05/20/99 XXLEY22Bdmqa Note: VIS 10/03/06 YHVRD01Sxzcw Note: mdajjem44 Admin Note: cntddap46Uiokr Note: [facility] Problem List Condition Effective Dates Status Health Status Informant Overweight(Confirmed) 02/11/14 Active
--- OUTSIDE RECORDS SUMMARY | 2022-04-22 00:27 | XMS_ITS | Continuity of Care Document ---
:2002 Author Organization [facility] Address [address] [place] [address]- Care Team Providers Name Role Phone Not on Staff, PCP Primary Care Physician Unavailable Encounter PSS Date(s): 11/16/20 - 03/16/21 [facility] [address] [place] [address]- Attending Physician: Raheel Durand MD Allergies, Adverse Reactions, Alerts Substance Reaction [...] Influenza Vaccine (oldterm) 01/27/09 Given Poliovirus Vaccine, Qhmqsbvdvhc73 01/12/08 Given Poliovirus Vaccine, Inactivated 07/17/04 Given Poliovirus Vaccine, Inactivated 04/26/03 Given Poliovirus Vaccine, Inactivated 03/15/03 Given Diphth/Pertussis,Acel/Tetanus (oldterm)15 01/12/08 Given Diphth/Pertussis,Acel/Tetanus (oldterm) 07/17/04 Given Diphth/Pertussis,Acel/Tetanus (oldterm) 06/28/03 Given Diphth/Pertussis,Acel/Tetanus (oldterm) 04/26/03 Given Diphth/Pertussis,Acel/Tetanus (oldterm) 03/15/03 Given Influenza Virus Vaccine (oldterm)16 02/26/07 Given Measles/Mumps/Rubella/DlvevpxnjXloafNbz06 01/13/07 Given Haemophilus B Conj Vaccine (oldterm) [...] term)18 02 Given 1Result Comment: [01/29/2018] Dr. DurandSyoctwrga6Ycvbab Comment: [01/22/2017] Brooklyn GonzalezXupozmg5Lecewr Comment: [01/15/2017] Dr. Durand[01/15/2017 Uncharted] changed efon9Xkbwus Comment: [03/10/2016] Jian Durand KRH0Cffww Note: vis flgpq0Rpulp Note: VIS 06/21 06 SGJKG3Hltwfa Comment: [02/11/2014] Dr KaurPkiwvdzcp1Manraj Comment: [02/11/2014] Dr KaruPijovybmi1Rouikd Comment: [02/11/2014] Dr KaurCpgcrrypg90Bzxnvf Comment: [02/11/2014] Dr KaurQanxqibyf95Ztfnv Note: VIS 02/20/07 UXTGF52Qzxhz Note: screening question qxsqhntf73Gsovs Note: screening question vbssykot29Gvyri Note: VIS 05/20/99 GZWEM22Peelx Note: VIS 10/03/06 FBCYB43Zpeiy Note: Admin Note: yiaxkst99Jnkzi Note: [facility] Problem List Condition Effective Dates Status Health Status Informant Overweight(Confirmed) 02/11/14 Active
--- OUTSIDE RECORDS SUMMARY | 2022-04-22 00:27 | XMS_ITS | Continuity of Care Document ---
:2002 Author Organization [facility] Address [address] [place] [address]- Care Team Providers Name Role Phone Not on Staff, PCP Primary Care Physician Unavailable Encounter PSS Date(s): 05/29/21 - 06/05/21 [facility] [address] [place] [address]- Attending Physician: Not on Staff, Attending MD [...] Influenza Vaccine (oldterm) 01/27/09 Given Poliovirus Vaccine, Lbmsazoooin44 01/12/08 Given Poliovirus Vaccine, Inactivated 07/17/04 Given Poliovirus Vaccine, Inactivated 04/26/03 Given Poliovirus Vaccine, Inactivated 03/15/03 Given Diphth/Pertussis,Acel/Tetanus (oldterm)15 01/12/08 Given Diphth/Pertussis,Acel/Tetanus (oldterm) 07/17/04 Given Diphth/Pertussis,Acel/Tetanus (oldterm) 06/28/03 Given Diphth/Pertussis,Acel/Tetanus (oldterm) 04/26/03 Given Diphth/Pertussis,Acel/Tetanus (oldterm) 03/15/03 Given Influenza Virus Vaccine (oldterm)16 02/26/07 Given Measles/Mumps/Rubella/WgnzbtdbdIpioxYxn29 01/13/07 Given Haemophilus B Conj Vaccine (oldterm) [...] term)18 02 Given 1Result Comment: [01/29/2018] Dr. DurandHmlryvfsz4Qcuphg Comment: [01/22/2017] Brooklyn GonzalezApxhofj8Qxlgen Comment: [01/15/2017] Dr. Durand[01/15/2017 Uncharted] changed vkil9Ipjjxc Comment: [03/10/2016] Jian Durand KPX5Pnugy Note: vis ghbsd3Dhupr Note: VIS 06/21 06 BLERY1Frhpkb Comment: [02/11/2014] Dr KaurOgyjkltid8Qjyaet Comment: [02/11/2014] Dr KaurKgcxtfnya1Cresxj Comment: [02/11/2014] Dr KaurDglrbssng38Rmbpes Comment: [02/11/2014] Dr KaurUoutcxgsk61Fnvuf Note: VIS 02/20/07 HYVQE54Csurq Note: screening question gpsjfupp18Bzaln Note: screening question iznqcwvc50Aqjxe Note: VIS 05/20/99 AQGUF94Digwr Note: VIS 10/03/06 SULHP20Tpmko Note: ovomwve31 Admin Note: qwcnlfa25Zvnil Note: [facility] Problem List Condition Effective Dates Status Health Status Informant Overweight(Confirmed) 02/11/14 Active
--- OUTSIDE RECORDS SUMMARY | 2022-04-22 00:27 | XMS_ITS | Continuity of Care Document ---
:2002 Author Organization [facility] Address [address] [place] [address]- Care Team Providers Name Role Phone Not on Staff, PCP Primary Care Physician Unavailable Encounter PSS Date(s): 02/09/20 - 02/16/20 [facility] [place] [address] [place] [address]- [facility] Attending Physician: Raheel Durand MD Allergies, Adverse Reactions, Alerts Substance Reaction Severity Status NKA Active Immunizations Given and Recorded Vaccine Date Status Refusal Reason influenza virus vaccine, inactivated 02/09/20 Given influenza [...] Influenza Vaccine (oldterm) 01/27/09 Given Poliovirus Vaccine, Inzbacelxxs15 01/12/08 Given Poliovirus Vaccine, Inactivated 07/17/04 Given Poliovirus Vaccine, Inactivated 04/26/03 Given Poliovirus Vaccine, Inactivated 03/15/03 Given Diphth/Pertussis,Acel/Tetanus (oldterm)15 01/12/08 Given Diphth/Pertussis,Acel/Tetanus (oldterm) 07/17/04 Given Diphth/Pertussis,Acel/Tetanus (oldterm) 06/28/03 Given Diphth/Pertussis,Acel/Tetanus (oldterm) 04/26/03 Given Diphth/Pertussis,Acel/Tetanus (oldterm) 03/15/03 Given Influenza Virus Vaccine (oldterm)16 02/26/07 Given Measles/Mumps/Rubella/PwltseprnDmgteDmu97 01/13/07 Given Haemophilus B Conj Vaccine (oldterm) [...] term)18 02 Given 1Result Comment: [01/29/2018] Dr. DurandZsiwwollo4Tnoimu Comment: [01/22/2017] Brooklyn GonzalezLuekjoc4Lvdtyt Comment: [01/15/2017] Dr. Durand[01/15/2017 Uncharted] changed wbyx4Kzwbzf Comment: [03/10/2016] Jian Ladarius BLS8Pzfig Note: vis irlxb1Sxhxv Note: VIS 06/21 06 LXMMI3Uiuhbd Comment: [02/11/2014] Dr KaurIrgbniuji2Wjyavl Comment: [02/11/2014] Dr KaurQjsowvsze8Multmz Comment: [02/11/2014] Dr KaurQfpmrfrgy18Dpcpcv Comment: [02/11/2014] Dr KaurBmqgdyljj82Zpyic Note: VIS 02/20/07 QNWSD71Mymva Note: screening question hctenrvd62Jouig Note: screening question wjvretmb54Hxtdk Note: VIS 05/20/99 VERKP03Scjfy Note: VIS 10/03/06 BHWMI38Javku Note: xaconak62 Admin Note: wytddpv46Xkoof Note: [facility] Problem List Condition Effective Dates Status Health Status Informant Overweight(Confirmed) 02/11/14 Active Vital Signs Most recent to oldest [Reference Range]: 1 Height 174.5 cm (02/09/20 1:36 PM) Weight 82.9 kg (02/09/20 1:36 PM) Pulse Rate [55-90 bpm] 120 bpm *H* (02/09/20 1:36 PM) Body Mass Index [18.5-24.99] 27.22 *H* (02/09/20 1:36 PM) Blood Pressure [80-130/50-80 mm Hg] 140/90 mm Hg *H* (02/09/20 1:36 PM) Blood pressure sites Arm, left (02/09/20 1:36 PM) Dry Weight 82.9 kg (02/09/20 1:36 PM) Weight Obtained Via Standing scale (02/09/20 1:36 PM) Dry Weight Obtained Via Standing scale (02/09/20 1:36 PM)
--- OUTSIDE RECORDS SUMMARY | 2022-04-22 00:27 | XMS_ITS | Continuity of Care Document ---
:2002 Author Organization [facility] Address [address] [place] [address]- Care Team Providers Name Role Phone Not on Staff, PCP Primary Care Physician Unavailable Encounter PSS Date(s): 02/17/21 - 02/24/21 [facility] [address] [place] [address]- Attending Physician: Calvin Kaur MD Allergies, Adverse Reactions, Alerts Substance Reaction [...] Influenza Vaccine (oldterm) 01/27/09 Given Poliovirus Vaccine, Txkahlkrwgs19 01/12/08 Given Poliovirus Vaccine, Inactivated 07/17/04 Given Poliovirus Vaccine, Inactivated 04/26/03 Given Poliovirus Vaccine, Inactivated 03/15/03 Given Diphth/Pertussis,Acel/Tetanus (oldterm)15 01/12/08 Given Diphth/Pertussis,Acel/Tetanus (oldterm) 07/17/04 Given Diphth/Pertussis,Acel/Tetanus (oldterm) 06/28/03 Given Diphth/Pertussis,Acel/Tetanus (oldterm) 04/26/03 Given Diphth/Pertussis,Acel/Tetanus (oldterm) 03/15/03 Given Influenza Virus Vaccine (oldterm)16 02/26/07 Given Measles/Mumps/Rubella/CyqfbolynEawfvPog16 01/13/07 Given Haemophilus B Conj Vaccine (oldterm) [...] term)18 02 Given 1Result Comment: [01/29/2018] Dr. DurandYpykhnisi8Ekhzke Comment: [01/22/2017] Brooklyn GonzalezTzchhpu9Eenxkx Comment: [01/15/2017] Dr. Durand[01/15/2017 Uncharted] changed nyqt4Zqtsaq Comment: [03/10/2016] Jian Durand NWV6Gnfwm Note: vis flodw5Apwbx Note: VIS 06/21 06 CPKGD6Xxblau Comment: [02/11/2014] Dr KaurYsezzgpcv9Wqwrvr Comment: [02/11/2014] Dr KaurVxffaluco0Czkxwn Comment: [02/11/2014] Dr KaurTdxxcithd26Goeilt Comment: [02/11/2014] Dr KaurQcdappflf11Vqmts Note: VIS 02/20/07 VDTGT98Haweh Note: screening question sdwxrvyw82Xjfft Note: screening question xbvzuipx16Khwqr Note: VIS 05/20/99 YUKRM07Alhog Note: VIS 10/03/06 DKKVU15Gvypt Note: ywaxfwj48 Admin Note: yvwxqmh01Wkwsr Note: [facility] Problem List Condition Effective Dates Status Health Status Informant Overweight(Confirmed) 02/11/14 Active Vital Signs Most recent to oldest [Reference Range]: 1 Height 175 cm (02/17/21 11:13 AM) Weight 77.8 kg (02/17/21 11:13 AM) Pulse Rate [55-90 bpm] 96 bpm *H* (02/17/21 11:13 AM) Body Mass Index [18.5-24.99] 25.4 *H* (02/17/21 11:13 AM) Blood Pressure [71-110/30-71 mm Hg] 118/68 mm Hg *H* (02/17/21 11:13 AM) Blood pressure sites Arm, left (02/17/21 11:13 AM) Dry Weight 77.8 kg (02/17/21 11:13 AM) Weight Obtained Via Standing scale (02/17/21 11:13 AM) Dry Weight Obtained Via Standing scale (02/17/21 11:13 AM)
[2022-04-22 00:34] VITALS: BP 132/79; PULSE 66; RESP 17; TEMP 36.9; O2SAT 100
--- NOTE | 2022-04-22 00:35 | PC.NURSE ---
Patient reporting one small, raised, itchy hive like area on his left forearm. Patient had CT scan with IV contrast earlier today. No angioedema, no respiratory distress noted. Petrona, provider notified. Verbal order obtained for Benadryl 25 mg PO.
[2022-04-22] MEDS: diphenhydrAMINE HCL 25 MG CAPSULE PO (00:40)
[2022-04-22 01:35] LABS: Monotest Negative (Negative)
[2022-04-22 02:00] VITALS: BP 128/80; PULSE 86; RESP 14; TEMP 36.2; O2SAT 99
== END 2022-04-22 02:02 | disposition home or self-care (01) ==
PROVIDERS: Nurse Practitioner Family; Emergency Provider Emergency Medicine Emergency Medical Services; PCP Pediatrics Adolescent Medicine
DX: N42.83 Cyst of prostate (principal); J06.9 Acute upper respiratory infection, unspecified; R10.31 Right lower quadrant pain; M79.10 Myalgia, unspecified site; R51.9 Headache, unspecified; R10.9 Unspecified abdominal pain; Z20.822 Contact with and (suspected) exposure to COVID-19; Z79.899 Other long term (current) drug therapy
CPT/HCPCS: 0241U; 36415; 71045; 74177; 80053; 83605; 83690; 85025; 86308; 87040; 96360; 99284; Q9967

== ENCOUNTER 2022-04-23 19:05 | Emergency (ER) | payer OTHER, SELFPAY ==
--- NOTE | 2022-04-23 20:40 | ED_ITS ---
HPI - General Adult General Chief complaint: Nausea/Vomiting/Diarrhea <Brooklyn Salazar MD - Last Filed: 04/23/22 20:56> Stated complaint: +strep on 04/21 not feeling any better <Brooklyn Salazar MD - Last Filed: 04/23/22 20:56> Time Seen by Provider: 04/24/22 01:50 <Brooklyn Salazar MD - Last Filed: 04/23/22 20:56> Source: patient and family (Mother) <Eric Dutton MD - Last Filed: 04/24/22 05:27> Mode of arrival: ambulatory <Eric Dutton MD - Last Filed: 04/24/22 05:27> Limitations: no limitations <Eric Dutton MD - Last Filed: 04/24/22 05:27> History of Present Illness HPI narrative: 21-year-old male came in for evaluation of nausea, vomiting, abdominal pain for the past 10 days. Patient recently diagnosed by his PCP with strep pharyngitis required amoxicillin course for 10 days, patient was able to finish the antibiotic, patient temporally felt better then shortly after started to have intermittent crampy abdominal pain with nausea and vomiting unable to tolerate p.o. intake due to vomiting. Patient was seen in the emergency department 3 days ago had a CT of the abdomen pelvis which showed no evidence of acute appendicitis. <Eric Dutton MD - Last Filed: 04/24/22 05:27> Related Data Allergies/adverse reactions: Allergies Allergy/AdvReac Type Severity Reaction Status Date / Time No Known Allergies Allergy Verified 04/21/22 22:15 <Brooklyn Salazar MD - Last Filed: 04/23/22 20:56> Review of Systems Review of Systems: All other systems are reviewed and are negative Constitutional: Reports as per HPI and Reports no additional constitutional complaints Eyes: Reports as per HPI and Reports no additional eye complaints Reports system reviewed and no additional complaints, except as documented Cardiovascular: Reports as per HPI and Reports no additional cardiovascular complaints Respiratory: Reports as per HPI and Reports no additional respiratory complaints Gastrointestinal: Reports as per HPI and Reports no additional gastrointestinal complaints Genitourinary: Reports no additional female genitourinary complaints Musculoskeletal: Reports no additional musculoskeletal complaints Skin/Breast: Reports system reviewed and no additional complaints, except as docu Psychiatric: Reports no additional psychiatric complaints Endocrine: Reports no additional endocrine complaints Hematologic/Lymphatic: Reports no additional hematologic/lymphatic complaints Allergic/Immunologic: Reports no additional allergic/immunologic complaints Reports system reviewed and no additional complaints, except as documented and Reports Abnormal speech present <Eric Dutton MD - Last Filed: 04/24/22 05:27> [facility] Social History Social History: Social History Alcohol intake: never Smoked in Last 30 Days: No Use of substances other than those prescribed or required for medical reasons: No Advance Directives: No <Brooklyn Salazar MD - Last Filed: 04/23/22 20:56> Physical Exam ED Vital Signs: Vital Signs - 24 hr 04/23/22 20:41 04/24/22 00:54 04/24/22 02:44 Temperature 98.4 F 98.6 F Pulse Rate 106 H 71 79 Respiratory Rate 16 19 18 Blood Pressure 166/82 H 119/76 126/78 Pulse Oximetry 98 96 97 Oxygen Delivery Method Room Air Room Air Room Air BMI result Body Mass Index 22.8 <Brooklyn Salazar MD - Last Filed: 04/23/22 20:56> Vital Signs - 24 hr 04/23/22 20:41 04/24/22 00:54 04/24/22 02:44 Temperature 98.4 F 98.6 F Pulse Rate 106 H 71 79 Respiratory Rate 16 19 18 Blood Pressure 166/82 H 119/76 126/78 Pulse Oximetry 98 96 97 Oxygen Delivery Method Room Air Room Air Room Air BMI result Body Mass Index 22.8 Vital signs have been reviewed as appeared to be correct. Blood pressure normal. Heart rate normal. Respiration rate normal. Temperature normal. Oxygen saturation normal. <Eric Dutton MD - Last Filed: 04/24/22 05:27> Appearance: Alert. Oriented X3. No acute distress. Head: Normal external exam. Normocephalic. Atraumatic. No Tate signs noted. No raccoon eyes noted Eyes: PERRLA. EOMI. Conjunctiva and sclera normal. Eyelids normal. ENT: TM's Normal. Pharynx normal. Uvula midline. Moist mucous membranes. No trismus noted. No drooling noted. No muffled voice noted. Neck: Normal inspection. Neck supple. FROM. No adenopathy. Thyroid Normal. No meningeal signs. No neck mass noted. CVS: Normal heart rate and rhythm. Heart sound normal. No murmurs noted. Pulses normal throughout. Respiratory: No respiratory distress. Painless inspiration. Breath sounds normal. No wheezes/rales/rhonchi noted. Chest nontender. No accessory muscle usage noted or decreased air movement noted. Abdomen: Soft, mild epigastric tenderness, no rebound tenderness, no guarding. Bowel sounds normal in all 4 quadrants. No distention noted. No organomegaly noted. No visible injury noted. Back: No CVA tenderness. Full range of motion noted. Skin: Skin warm and dry. Normal skin color. Normal skin turgor. No rashes/lesions/lacerations noted. Extremities: No lower extremity edema. Extremities exhibit normal range of motion. Extremities nontender. Neuro: Oriented X 3. Cranial nerve exam: II-XII are grossly intact No motor deficit. No sensory deficit. Reflexes normal. <Eric Dutton MD - Last Filed: 04/24/22 05:27> Course Course Course Narrative: 21M with persistent low grade fevers, weight loss of 20+lbs, no viral etio logies, no obvious bacterial etiology...concerns for food allergy, Hep A, or possible leukemia/lymphoma, no cannabis use. VS Review GEN: NAD ABD: ND/NT Labs, may need IVF? <Brooklyn Salazar MD - Last Filed: 04/23/22 20:56> Reevaluation(s) Reevaluation #1: 21-year-old male presented with vomiting and abdominal pain after finished a course of amoxicillin for strep pharyngitis, patient lost about 14 lb in the last 10 days because decreased p.o. intake and unable to keep food down, in the emergency department patient is having a mild epigastric tenderness, patient was evaluated in the emergency department few days ago and had abdominal CT which was negative for acute appendicitis, in the emergency department patient received fluid, Maalox, Pepcid IV patient feels a lot better now able to tolerate p.o. intake making acute appendicitis is not a favorable diagnosis. Patient was instructed to return if symptoms is not improving or is getting worse. <Eric Dutton MD - Last Filed: 04/24/22 05:27> Time: 05:21 <Eric Dutton MD - Last Filed: 04/24/22 05:27> Medications Administered Discontinued Medications Generic Name Dose Route Start Last Admin Trade Name Freq PRN Reason Stop Dose Admin Al Hydroxide/Mg Hydroxide 30 ml 04/24/22 01:56 04/24/22 02:15 Magnesium Hydrox/Alum Hydrox 30 Ml Oral.Susp PO 04/24/22 01:57 30 ml ONCE ONE Administration Famotidine 20 mg 04/24/22 01:56 04/24/22 02:14 Famotidine/Pf 20 Mg/2 Ml Vial IVPUSH 04/24/22 01:57 20 mg ONCE ONE Administration Sodium Chloride 1,000 mls @ 999 mls/hr 04/24/22 01:56 04/24/22 03:31 Ns IV 04/24/22 02:56 Infused .Q1H1M ONE Infusion Ondansetron HCl 4 mg 04/24/22 01:56 04/24/22 02:14 Ondansetron Hcl 4 Mg/2 Ml Vial IVPUSH 04/24/22 01:57 4 mg ONCE ONE Administration <Brooklyn Salazar MD - Last Filed: 04/23/22 20:56> Medications Administered Discontinued Medications Generic Name Dose Route Start Last Admin Trade Name Freq PRN Reason Stop Dose Admin Al Hydroxide/Mg Hydroxide 30 ml 04/24/22 01:56 04/24/22 02:15 Magnesium Hydrox/Alum Hydrox 30 Ml Oral.Susp PO 04/24/22 01:57 30 ml ONCE ONE Administration Famotidine 20 mg 04/24/22 01:56 04/24/22 02:14 Famotidine/Pf 20 Mg/2 Ml Vial IVPUSH 04/24/22 01:57 20 mg ONCE ONE Administration Sodium Chloride 1,000 mls @ 999 mls/hr 04/24/22 01:56 04/24/22 03:31 Ns IV 04/24/22 02:56 Infused .Q1H1M ONE Infusion Ondansetron HCl 4 mg 04/24/22 01:56 04/24/22 02:14 Ondansetron Hcl 4 Mg/2 Ml Vial IVPUSH 04/24/22 01:57 4 mg ONCE ONE Administration <Eric Dutton MD - Last Filed: 04/24/22 05:27> Medical Decision Making Medical Decision Making Differential Diagnoses: Differential diagnosis Differential Diagnosis: The differential diagnosis associated with the patient?s presentation includes: Gastritis, dehydration, acute appendicitis. <Eric Dutton MD - Last Filed: 04/24/22 05:27> Discharge Plan Discharge Clinical Impression: Dehydration, Gastritis <Brooklyn Salazar MD - Last Filed: 04/23/22 20:56> Patient Disposition: Home, Self-Care <Brooklyn Salazar MD - Last Filed: 04/23/22 20:56> Referrals: Physician,Unknown J [Primary Care Provider] - <Brooklyn Salazar MD - Last Filed: 04/23/22 20:56> Stand Alone Forms: Work/School Release <Brooklyn Salazar MD - Last Filed: 04/23/22 20:56>
[2022-04-23 20:41] VITALS: BP 166/82; PULSE 106; RESP 16; TEMP 36.9; O2SAT 98; BMI 22.8
[2022-04-23 21:16] LABS: MANUAL DIFF FLAG NO
[2022-04-23 21:18] LABS: Basophils Absolute Auto 0.1 X10*3/uL (0.0-0.2); Basophils Percent Auto 0.5 % (0-2); Eosinophils Absolute Auto 0.1 X10*3/uL (0.0-0.4); Hematocrit 44.4 % (42.0-52.0); Hemoglobin 15.9 g/dl (14.0-18.0); Imm Gran Abs Auto 0.05 X10*3/uL (0.00-0.03); Imm Gran Pct Auto 0.4 % (0.0-0.4); Lymphocytes Absolute Auto 2.8 X10*3/uL (1.2-4.9); Lymphocytes Percent Auto 20.1 % (20-40); Mean Corpuscular HGB Conc 35.8 g/dl (31.0-36.0); Mean Corpuscular Hemoglobin 29.1 pg (27.0-33.0); Mean Corpuscular Volume 81.2 fL (80.0-98.0); Mean Platelet Volume 8.8 fL (9.4-12.4); Monocytes Percent Auto 7.2 % (2-11); Neutrophils Percent Auto 70.8 % (45-73); Platelet Count 388 X10*3/uL (160-400); Red Blood Count 5.47 X10*6/uL (4.60-5.80); Red Cell Distribution Width 11.3 % (11.0-16.0); White Blood Count 14.1 X10*3/uL (4.8-10.8)
[2022-04-23 21:38] LABS: Alanine Aminotransferase 14 U/L (0-40); Albumin Level 5.1 g/dL (3.5-5.0); Alkaline Phosphatase 46 U/L (39-117); Anion Gap 18 (12-20); Aspartate Amino Transferase 15 U/L (5-37); Bilirubin Total 1.6 mg/dL (0.0-1.0); Blood Urea Nitrogen 7 mg/dL (9-16); C Reactive Protein < 0.04 mg/dL (< or = 0.50); Carbon Dioxide 21 mmol/L (22-29); Chloride 107 mmol/L (96-108); Estimated Glomerular Filt Rate > 60; Glucose Random 91 mg/dL (60-115); Lactate Dehydrogenase 177 U/L (118-273); Potassium 3.6 mmol/L (3.3-5.1); Sodium 142 mmol/L (135-145)
[2022-04-23 21:58] LABS: Erythrocyte Sedimentation Rate 2 MM/HR (0-15)
[2022-04-24 00:54] VITALS: BP 119/76; PULSE 71; RESP 19; O2SAT 96
[2022-04-24 01:00] LABS: Strep A Nucleic Acid Negative (Negative)
[2022-04-24] MEDS: Famotidine/PF 20 MG/2 ML VIAL IVPUSH (02:14)
[2022-04-24] MEDS: ondansetron HCL 4 MG/2 ML VIAL IVPUSH (02:14)
[2022-04-24] MEDS: 0.9 % Sodium Chloride 1,000 ML 999 ML IV (02:14)
[2022-04-24] MEDS: Magnesium Hydrox/Alum Hydrox 30 ML ORAL.SUSP PO (02:15)
[2022-04-24 02:44] VITALS: BP 126/78; PULSE 79; RESP 18; TEMP 37; O2SAT 97
--- NOTE | 2022-04-24 03:37 | PC.NURSE ---
Pt stated he is feeling a lot of relief after medications and a liter of fluid. Pt has been PO challenged with crackers and water. Pt reports that he feels very good and requests more food and water.
== END 2022-04-24 05:39 | disposition home or self-care (01) ==
PROVIDERS: Student in an Organized Health Care Education/Training Program; Emergency Provider Emergency Medicine
DX: K29.70 Gastritis, unspecified, without bleeding (principal); J02.9 Acute pharyngitis, unspecified; E86.0 Dehydration; Z20.822 Contact with and (suspected) exposure to COVID-19; Z79.899 Other long term (current) drug therapy
CPT/HCPCS: 36415; 80053; 83615; 85025; 85652; 86140; 87651; 96361; 96374; 96375; 99284; J2405

== ENCOUNTER → 2022-09-07 10:32 | Outpatient (BNVA) | payer OTHER, SELFPAY | PROVIDERS: Visit Provider Urology | DX: Z13.89 Encounter for screening for other disorder (principal) ==